=== PATIENT | female | born 1940 | race Caucasian/White ===

== ENCOUNTER 2016-07-24 19:57 | Emergency (ER) | payer MEDICARE ==
[2016-07-24 20:38] LABS: ABSOLUTE NEUTROPHIL COUNT 7.7 K/mm3 (1.8-7.7); BASO % 0.4 % (0.2-1.0); HEMATOCRIT 42.8 % (37.0-47.0); HEMOGLOBIN 14.4 gm/l (12.0-16.0); IMM NEUT # 0.1 K/mm3 (0-0.2); IMM NEUT% 0.5 % (0-1); LYMPH # 1.3 (1.0-4.8); LYMPH % 13.4 % (15-45); MEAN CELL VOLUME 86.3 fl (81.0-99.0); MEAN CORPUSCULAR HGB CONC 33.6 g/dl (33.0-37.0); MEAN PLATELET VOLUME 9.6 fl (7.4-10.4); MONO # 0.9 (0.0-0.8); MONO % 9.4 % (4-12); NEUT % 76.3 % (43-75); PLATELET COUNT 199 K/mm3 (130-400); RED CELL DISTRIBUTION WIDTH 13.5 % (11.5-14.5)
[2016-07-24] MEDS ORDERED: LACTATED RINGERS 1,000 ML ONE (20:53)
--- NOTE | 2016-07-24 20:58 | CT ---
HEAD CT WITHOUT CONTRAST HISTORY: Multiple falls in the last several days No intravenous contrast administered. Contiguous axial images acquired from skull base to vertex. COMPARISON:None. BRAIN VOLUME: Mild diffuse volume loss. VENTRICULAR SIZE:No gross ventriculomegaly. FOCAL MASS EFFECT:None. Minor calcification of the left cerebellar hemisphere. ACUTE INTRACRANIAL HEMORRHAGE:None. CALVARIUM:Grossly intact. VISIBLE PARANASAL SINUSES AND MASTOID AIR CELLS: Small air-fluid level of the left sphenoid sinus. Suggested air-fluid level of the left maxillary sinus. Consider facial CT. Right mastoid effusion with sclerotic change. IMPRESSION: 1. No intracranial mass effect, displaced calvarial fracture, or acute intracranial hemorrhage. 2. Small air-fluid levels of the left sphenoid sinus and left maxillary sinus, incompletely depicted. Consider maxillofacial CT if there is clinical evidence of maxillofacial trauma. 3. Findings suggest chronic right mastoiditis. 4. Nonspecific punctate calcification of the left cerebellar hemisphere.This could relate to early dentate nucleus calcification. Results were electronically transmitted to the electronic medical record at 07/24/2016 at 2054 hours.
[2016-07-24 20:59] LABS: ALB/GLOB RATIO 1.1 (>1.0); ALBUMIN 3.7 gm/dL (3.5-5.7); CALCIUM 8.4 mg/dL (8.6-10.3)
--- NOTE | 2016-07-24 21:01 | RAD ---
CHEST 2 VIEWS HISTORY: Cough since Thursday. Frontal and lateral chest radiographs dated 07/24/2016. COMPARISON: None. FINDINGS: FOCAL AIRSPACE OPACITY: No gross airspace consolidation. BRONCHOVASCULAR MARKINGS: Coarsened with minor peribronchial cuffing. PLEURAL EFFUSION: None. CARDIOMEDIASTINAL SILHOUETTE: Nonenlarged. PNEUMOTHORAX: None identified. OSSEOUS STRUCTURES: No grossly destructive lesions. UPPER ABDOMEN: Status post cholecystectomy. IMPRESSION: No gross airspace consolidation. Coarsened bronchovascular markings, which can be seen in the setting of bronchitis, atypical/viral infection, or central airways disease.
[2016-07-24] MEDS ORDERED: Oseltamivir Phosphate 75 MG CAP ONE (23:40)
[2016-07-25 00:02] LABS: URINE BILIRUBIN NEGATIVE (NEGATIVE); URINE BLOOD 2+ (NEGATIVE); URINE GLUCOSE (UA) NEGATIVE (NEGATIVE); URINE LEUKOCYTE ESTERASE TRACE (NEGATIVE); URINE NITRITE NEGATIVE (NEGATIVE); URINE PROTEIN NEGATIVE (NEGATIVE); URINE UROBILINOGEN NORMAL (0-1 mg/dl)
[2016-07-25 00:03] LABS: URINE COLOR YELLOW
[2016-07-25 00:04] LABS: URINE APPEARANCE CLEAR
[2016-07-25 00:25] LABS: URINE BACTERIA 2+
[2016-07-25] MEDS ORDERED: SODIUM CHLORIDE 0.9% 1,000 ML ONE (07:10)
[2016-07-25] MEDS ORDERED: ACETAMINOPHEN 500 MG TABLET ONE (07:11)
[2016-07-25 08:20] LABS: ALBUMIN 3.2 gm/dL (3.5-5.7); CALCIUM 8.2 mg/dL (8.6-10.3)
== END 2016-07-25 11:23 | disposition home or self-care (01) ==
LOC: ED 19:57
DX: J11.1 Influenza due to unidentified influenza virus with other respiratory manifestations (principal); R94.4 Abnormal results of kidney function studies; W19.XXXA Unspecified fall, initial encounter; Z91.81 History of falling; Y92.009 Unspecified place in unspecified non-institutional (private) residence as the place of occurrence of the external cause; Y99.8 Other external cause status
CPT/HCPCS: 85025; 82550 ×3; 87086; 80053 ×2; 87186; 84484; 81001; 87077; 71020; 70450; 87804; 99284 ×2; 96360; 96361 ×4; 93005; A9270 ×2; J7120; J7030